=== PATIENT | female | born 1995 | race Caucasian/White ===

== ENCOUNTER 2017-03-18 05:20 | Emergency (ER) | payer SELFPAY ==
[2017-03-18 05:20] VITALS: BMI 25.5
[2017-03-18 05:45] VITALS: TEMP 98.6
--- NOTE | 2017-03-18 05:51 | C.PDOC ---
History Of Present Illness Patient c/o 2 weeks of nasal congestion, mild dry cough for 2 weeks, 1 day of left earache. Patient denies fever, headache, dizziness. In contrary to triage patient denies SOB, but admits feeling congested. Chief Complaint (Nursing): ENT Problem History Per: Patient Onset/Duration Of Symptoms: Other (2 weeks of URI, 1 day of earache) Past Medical History Reviewed: Historical Data, Nursing Documentation, Vital Signs Vital Signs: Last Vital Signs Temp 98.6 F 03/18/17 05:40 Pulse 63 03/18/17 05:40 Resp 20 03/18/17 05:40 BP 107/72 03/18/17 05:40 Pulse Ox 99 03/18/17 05:51 - Medical History PMH: No Chronic Diseases - [facility] Procedures EPISIOTOMY (08/03/12) MANUAL ASSIST DELIV NEC (12/11/13) Family History: States: No Known Family Hx - Social History Hx Alcohol Use: No Hx Substance Use: No Review Of Systems Except As Marked, All Systems Reviewed And Found Negative. Physical Exam - Physical Exam Appears: Non-toxic, No Acute Distress Skin: Normal Color, Warm, No Rash Head: Atraumatic, Normacephalic Eye(s): bilateral: Normal Inspection Ear(s): Left: TM Erythema, TM Dull, Loss Of TM Landmarks, Right: Normal Nose: Other (congested) Oral Mucosa: Moist Gingiva: Normal Appearing Throat: Erythema, No Exudate, No Drooling Neck: Normal ROM, Supple Lymphatic: No Adenopathy Chest: No Tenderness Cardiovascular: Rhythm Regular Respiratory: Normal Breath Sounds, No Rales, No Rhonchi, No Wheezing Gastrointestinal/Abdominal: Soft, No Tenderness Neurological/Psych: Oriented x3, Normal Speech, Normal Cognition ED Course And Treatment O2 Sat by Pulse Oximetry: 99 Progress Note: Patient was treated with Clindamycin and Ibuprofen and she was d/ c home with PMD follow up. Disposition - Disposition Referrals: Gerardo Ludwig MD [Staff Provider] - Disposition: HOME/ ROUTINE Disposition Time: 05:48 Condition: STABLE Additional Instructions: Follow up with PMD within 1-2 days. Return to ED if feel worse. Prescriptions: Clindamycin [Cleocin] 300 mg PO Q6 #28 cap Fluticasone Nasal [Flonase] 1 spr NS BID #1 spr Ibuprofen [Motrin Tab] 400 mg PO Q8 #30 tab Promethazine HCl/Codeine [Prometh-Codein 6.25-10 mg/5 ml] 5 ml PO .Q4-6H #150 ml Instructions: Otitis Media (ED), Upper Respiratory Infection (ED) Forms: [employer] (Mongolian) - Clinical Impression Clinical Impression: URI (upper respiratory infection), Otitis media
[2017-03-18 06:15] VITALS: BP 110/70; PULSE 70; RESP 14; O2SAT 98
== END 2017-03-18 06:15 | disposition home or self-care (01) ==
LOC: C.ER 05:20
DX: J06.9 Acute upper respiratory infection, unspecified (principal); H66.90 Otitis media, unspecified, unspecified ear

== ENCOUNTER 2017-07-11 08:55 | Emergency (ER) | payer OTHER ==
[2017-07-11 08:55] VITALS: BMI 25.5
[2017-07-11 09:13] VITALS: BP 118/77; PULSE 80; RESP 20; TEMP 98.3; O2SAT 98
--- NOTE | 2017-07-11 09:36 | C.PDOC ---
History Of Present Illness 22 y/o female presents to the ED complaining of throat pain for the past 2 days. Patient was evaluated and prescribed Amoxicillin 500mg BID yesterday. She reports no improvement and came to the ED for further evaluation. No new symptoms, fevers, or chills. Time Seen by Provider: 07/11/17 09:29 Chief Complaint (Nursing): ENT Problem History Per: Patient History/Exam Limitations: None Onset/Duration Of Symptoms: Days Current Symptoms Are (Timing): Still Present Past Medical History Reviewed: Historical Data, Nursing Documentation, Vital Signs Vital Signs: Last Vital Signs Temp 98.3 F 07/11/17 08:59 Pulse 80 07/11/17 08:59 Resp 20 07/11/17 08:59 BP 118/77 07/11/17 08:59 Pulse Ox 98 07/11/17 09:35 - Medical History PMH: No Chronic Diseases Surgical History: No Surg Hx - [facility] Procedures EPISIOTOMY (08/03/12) MANUAL ASSIST DELIV NEC (12/11/13) Family History: States: No Known Family Hx - Social History Hx Tobacco Use: No Hx Alcohol Use: No Hx Substance Use: No - Immunization History Hx Tetanus Toxoid Vaccination: No Hx Influenza Vaccination: No Hx Pneumococcal Vaccination: No Review Of Systems Except As Marked, All Systems Reviewed And Found Negative. Constitutional: Negative for: Fever, Chills ENT: Positive for: Throat Pain Respiratory: Negative for: Cough, Shortness of Breath Physical Exam - Physical Exam Appears: Non-toxic, No Acute Distress Skin: Normal Color, Warm, Dry Head: Atraumatic, Normacephalic Eye(s): bilateral: Normal Inspection, PERRL, EOMI Nose: Normal Oral Mucosa: Moist Throat: Exudate (to bilateral tonsils), Other (Normal voice) Neck: Normal ROM, Supple Lymphatic: Adenopathy (bilateral cervical adenopathy) Cardiovascular: Rhythm Regular, No Murmur Respiratory: Normal Breath Sounds, No Accessory Muscle Use, No Rales, No Rhonchi , No Wheezing Neurological/Psych: Oriented x3, Normal Speech ED Course And Treatment O2 Sat by Pulse Oximetry: 98 (RA) Pulse Ox Interpretation: Normal Medical Decision Making Medical Decision Making: Impression: exudative tonsillitis already has taken 1 day of Amox 500 TID Disposition Doctor Will See Patient In The: Office Counseled Patient/Family Regarding: Studies Performed, Diagnosis - Disposition Referrals: [facility] [Outside] [facility] [Outside] Disposition: HOME/ ROUTINE Disposition Time: 09:35 Condition: GOOD Additional Instructions: sigue Autmentin 875 mg dos veces al jaylan para cumplir 10 house en seguida Ibuprofeno 600 mg cada 6 horas maty necessario para dolor y fiebre Pepcid 20 mg en la noche para prevenir irritacion del estomago debido a los dos otros medicamentos. Prescriptions: Amoxicillin/Clavulanate [Augmentin 875 MG-125 MG] 1 tab PO BID #18 tab Instructions: Strep Throat (DC) Forms: QuickProNotes (Latvian) Print Language: PALAUAN - Clinical Impression Clinical Impression: Tonsillitis with exudate - Scribe Statement The provider has reviewed the documentation as recorded by the Scribe (Sandra Iqbal) Provider Attestation: All medical record entries made by the Scribe were at my direction and personally dictated by me. I have reviewed the chart and agree that the record accurately reflects my personal performance of the history, physical exam, medical decision making, and the department course for this patient. I have also personally directed, reviewed, and agree with the discharge instructions and disposition.
== END 2017-07-11 09:42 | disposition home or self-care (01) ==
LOC: C.ER 08:55
DX: J03.90 Acute tonsillitis, unspecified (principal)

== ENCOUNTER 2017-07-28 00:02 | Emergency (ER) | payer SELFPAY ==
[2017-07-28 00:02] VITALS: BMI 25.5
[2017-07-28 00:17] VITALS: O2SAT 97
[2017-07-28] MEDS ORDERED: Sodium Chloride 0.9% 1,000 ML IV ONE (00:27)
[2017-07-28] MEDS ORDERED: Sodium Chloride 0.9% 1,000 ML ONE (00:51)
[2017-07-28 01:06] LABS: BASO % 0.6 % (0.0-2.0); EOS # 0.1 K/uL (0.0-0.7); EOS % 1.7 % (0.0-4.0); HEMOGLOBIN 14.3 g/dL (11.0-16.0); LYMPH # 2.7 K/uL (1.0-4.3); LYMPH % 31.8 % (20.0-40.0); MEAN CELL VOLUME 89.7 fL (81.0-99.0); MEAN CORPUSCULAR HEMOGLOBIN 31.3 pg (27.0-31.0); MEAN CORPUSCULAR HGB CONC 34.9 g/dL (33.0-37.0); MEAN PLATELET VOLUME 9.3 fL (7.2-11.7); MONO # 0.9 K/uL (0.0-0.8); MONO % 10.2 % (0.0-10.0); NEUT # 4.7 K/uL (1.8-7.0); NEUT % 55.7 % (50.0-75.0); NRBC % 0.1 % (0.0-2.0); RBC 4.57 Mil/uL (3.80-5.20); RED CELL DISTRIBUTION WIDTH 12.8 % (11.5-14.5); WHITE BLOOD COUNT 8.4 K/uL (4.8-10.8)
[2017-07-28 01:07] LABS: HCG,QUALITATIVE URINE NEGATIVE (NEGATIVE)
[2017-07-28 01:09] LABS: SQUAMOUS EPITHIAL 1 /hpf (0-5); URINE BILIRUBIN NEGATIVE (NEGATIVE); URINE CLARITY Hazy (Clear); URINE COLOR Yellow (YELLOW); URINE GLUCOSE (UA) NORMAL (Normal); URINE LEUKOCYTE ESTERASE 1+ Leu/uL (Negative); URINE PROTEIN NEGATIVE (NEGATIVE); URINE UROBILINOGEN NORMAL mg/dL (0.2-1.0)
[2017-07-28 01:14] LABS: URINE BLOOD NEGATIVE (NEGATIVE)
[2017-07-28 01:17] LABS: ALB/GLOB RATIO 1.1 (1.0-2.1); ALBUMIN 4.4 g/dL (3.5-5.0); ALT/SGPT 24 U/L (9-52); AST/SGOT 25 U/L (14-36); BLOOD UREA NITROGEN 10 mg/dL (7-17); CALCIUM 8.8 mg/dl (8.6-10.4); GFR AFRICAN-AMERICAN > 60; GFR NON-AFRICAN AMERICAN > 60; LIPASE 142 U/L (23-300)
--- NOTE | 2017-07-28 03:45 | US ---
EXAM: US Abdomen Limited, Right Upper Quadrant CLINICAL HISTORY: 22 years old, female; Pain; Abdominal pain; Other: Ruq; Additional info: Ruq pain TECHNIQUE: Real-time ultrasound of the right upper quadrant with image documentation. COMPARISON: No relevant prior studies available. FINDINGS: Liver: Normal echogenicity. No mass. No intrahepatic bile duct dilatation. Gallbladder: No gallstones. No wall thickening. No pericholecystic fluid. No sonographic Wren's sign. Common bile duct: No dilatation. No stones. Pancreas: Unremarkable as visualized. Right kidney: Normal echogenicity. No hydronephrosis. IMPRESSION: 1.No acute findings.
[2017-07-28] MEDS ORDERED: Morphine 4 MG/ML VIAL ONE (03:49)
[2017-07-28 03:51] VITALS: BP 110/71; PULSE 84; RESP 18
--- NOTE | 2017-07-28 03:54 | C.PDOC ---
Time Seen by Provider: 07/28/17 00:21 Chief Complaint (Nursing): Abdominal Pain History Per: Patient Onset/Duration Of Symptoms: Days (few), Intermittent Episodes Current Symptoms Are (Timing): Still Present Severity: Moderate Location Of Pain/Discomfort: RUQ Quality Of Discomfort: "Pain" Associated Symptoms: Nausea Exacerbating Factors: Food Additional History Per: Prior Records Past Medical History Reviewed: Historical Data, Nursing Documentation, Vital Signs Vital Signs: Last Vital Signs Temp 98.2 F 07/28/17 00:15 Pulse 81 07/28/17 00:15 Resp 16 07/28/17 00:15 BP 121/81 07/28/17 00:15 Pulse Ox 97 07/28/17 00:15 - Medical History PMH: No Chronic Diseases Surgical History: No Surg Hx - [facility] Procedures EPISIOTOMY (08/03/12) MANUAL ASSIST DELIV NEC (12/11/13) Family History: States: Unknown Family Hx - Social History Hx Tobacco Use: No Hx Alcohol Use: No Hx Substance Use: No - Immunization History Hx Tetanus Toxoid Vaccination: No Hx Influenza Vaccination: No Hx Pneumococcal Vaccination: No Review Of Systems Except As Marked, All Systems Reviewed And Found Negative. Constitutional: Negative for: Fever, Weakness Cardiovascular: Negative for: Chest Pain Respiratory: Negative for: Shortness of Breath Gastrointestinal: Positive for: Abdominal Pain. Negative for: Vomiting, Diarrhea Genitourinary: Negative for: Dysuria Musculoskeletal: Negative for: Neck Pain Skin: Negative for: Rash Neurological: Negative for: Weakness, Numbness Physical Exam - Physical Exam Appears: Non-toxic, No Acute Distress Skin: Normal Color, Warm, Dry, No Rash Head: Atraumatic, Normacephalic Eye(s): bilateral: Normal Inspection, PERRL, EOMI Neck: Normal ROM, Supple Cardiovascular: Rhythm Regular Respiratory: Normal Breath Sounds, No Accessory Muscle Use Gastrointestinal/Abdominal: Soft, Tenderness (RUQ), No Guarding, No Rebound Back: No CVA Tenderness Extremity: Normal ROM Neurological/Psych: Oriented x3, Normal Motor, Normal Sensation ED Course And Treatment - Laboratory Results Result Diagrams: 07/28/17 01:01 07/28/17 01:01 Interpretation Of Abnormal: UTI Urine POC: Negative O2 Sat by Pulse Oximetry: 97 Pulse Ox Interpretation: Normal - CT Scan/US RUQ Sono Other Rad Studies (CT/US): Read By Radiologist, Radiology Report Reviewed CT/US Interpretation: IMPRESSION: 1. No acute findings. Progress - Interventions Interventions:: Observation, Intravenous fluid - Medications Administered Oral: Antiemetic, H-2 jonah Intravenous: NSAID - Data Reviewed Data Reviewed: Lab, Diagnostic imaging, Old records - Patient Status Patient status: Mostly improved - Continuity of Care Discussed patient case with:: Patient, ED Nurse - Patient Plan Patient Plan: Discharge, F/U with PCP Disposition Counseled Patient/Family Regarding: Studies Performed, Diagnosis, Need For Followup, Rx Given - Disposition Referrals: [facility] [Outside] Disposition: HOME/ ROUTINE Disposition Time: 03:55 Condition: STABLE Additional Instructions: Follow up with your doctor or in the clinic for further evaluation and treatment. Return to the ER if you develop fever, vomiting, worsening of symptoms or if you have any other concerns. Prescriptions: Ciprofloxacin [Cipro] 1 tab PO BID #14 tab Famotidine [Pepcid] 20 mg PO BID #30 tab Instructions: Urinary Tract Infection, Adult (DC) - Clinical Impression Clinical Impression: RUQ abdominal pain, UTI (urinary tract infection)
[2017-07-28 04:41] VITALS: TEMP 98.4
== END 2017-07-28 04:47 | disposition home or self-care (01) ==
LOC: C.ER 00:02
DX: N39.0 Urinary tract infection, site not specified (principal); R10.11 Right upper quadrant pain
CPT/HCPCS: 76705; 80053; 81001; 83690; 84703; 85025; 87086; 96374; 96375; 99285; J1885; J2270; J7040